=== PATIENT | male | born 1950 | race Asian ===

== ENCOUNTER 2022-06-06 07:22 | Day surgery (SDC) | payer OTHER ==
[2022-06-04 13:29] VITALS: BMI 25.0
[2022-06-06] MEDS: TROPICAMIDE 1% OPHTH SOLN 15 ML BOTTLE ONE ×3 (07:55→08:05)
[2022-06-06] MEDS: PHENYLEPHRINE 2.5% OPTHALMIC DROP 2ML BOTTLE ONE ×3 (07:55→08:05)
[2022-06-06] MEDS: CIPROFLOXACIN 0.3% EYE DROPS 5 ML BOTTLE ONE ×3 (07:55→08:05)
[2022-06-06] MEDS: CYCLOPENTOLATE 2% OPHTH SOLN 2 ML BOTTLE ONE ×3 (07:55→08:05)
[2022-06-06 07:59] VITALS: RESP 16
[2022-06-06] MEDS ORDERED: CARBACHOL 0.01% INTRA-OCULAR 1.5 ML VIAL ONE (08:32)
[2022-06-06] MEDS ORDERED: NEO/POLYMYX B SULF/DEXAMETH OPHTHALMIC 5ML BOTTLE ONE (08:32)
[2022-06-06] MEDS ORDERED: TETRACAINE 0.5% OPHTH SOLN 2 ML BOTTLE ONE (08:32)
[2022-06-06] MEDS ORDERED: BSS (NA/CA/MG/K) BALANCED SALT SOLUTION OPHTH SOLN 15 ML BOTTLE ONE (08:32)
[2022-06-06] MEDS ORDERED: MIDAZOLAM HCL 2 MG/2 ML SINGLE DOSE VIAL ONE (08:42)
[2022-06-06 09:25] VITALS: BP 117/66
[2022-06-06 09:37] VITALS: PULSE 70; TEMP 98.1
== END 2022-06-06 09:47 | disposition home or self-care (01) ==
LOC: FASU 07:22
PROVIDERS: ATTEND Ophthalmology
PROC: 08RK3JZ Replacement of Left Lens with Synthetic Substitute, Percutaneous Approach (ICD-10-PCS; principal; 2022-06-06 08:53)
DX: H26.8 Other specified cataract (principal)
CPT/HCPCS: 66984; V2632